=== PATIENT | female | born 2000 | race Hispanic/Latino ===

== ENCOUNTER 2019-10-23 16:47 | Inpatient (IN) | payer MEDICAID ==
--- NOTE | 2019-10-23 21:22 | History and Physical Report ---
History of Present Illness Date of examination: 10/23/19 Date of admission: 10/23/2019 Chief complaint: contractions History of present illness: Pt presented to triage for contractions. NST noted to be noreactive with occasional variables noted. Pt complicated by severe IUGR with last growth in the 3rd percentile and pt was to be delivered betweein 38 and 39.6 as per MFM on sooner for maternal or indications. Pt was scheduled for IOL next week on . Will admit and proceed with IOL at this time due to findings on tracing at term. Pt noted to be vxt on sono done 4 dats agib ib 10/19/2019. Past History : 1 Term Births: 0 Premature Births: 0 Living Children: 0 Para: 0 Mult. Births: 0 Prev : 0 Aborta: 0 Elect. Ab: 0 Spont. Ab: 0 Ectopics: 0 Past Medical History: Negative Past Medical History Past Surgical History: Negative Past Surgical History Family History Summary: Other family member - Has No Family History of Ovarvian Cancer - Entered On: 07/17/2019 Other family member - Has No Family History of Colon Cancer - Entered On: 07/17/2019 Other family member - Has Family History of Hypertension - Entered On: 07/17/2019 Other family member - Has Family History Breast Cancer - Entered On: 07/17/2019 Social History: Marital Status: Single Children: 0 Occupation: [employer] Risk Factors: Smoked Tobacco Use: Never smoker Drug use: no HIV high-risk behavior: low risk Alcohol use: no Dietary Counseling: pn yes Past Medical History Surgery (Non-log hauler): Negative Past Surgical History Uterine Anomaly: negative Social Hx: Marital Status: Single Children: 0 Occupation: [employer] Infection History Hx of STD: none HIV Risk Eval: low risk Hepatitis B Risk Eval: low risk Personal hx. of genital herpes: no Past History Past Medical History: no pertinent history Past Surgical History: no surgical history Family/Genetic History: other (see hpi) Social history: no significant social history - Obstetrical History Expected Date of Delivery: 11/07/19 Actual Gestation: 37 Week(s) 6 Day(s) : 1 Medications and Allergies Allergies Allergy/AdvReac Type Severity Reaction Status Date / Time No Known Allergies Allergy Unverified 10/23/19 17:08 Home Medications Medication Instructions Recorded Confirmed Last Taken Type No Known Home Medications [No 10/23/19 10/23/19 Unknown History Reported Home Medications] - Vital Signs Vital signs: Vital Signs Pulse BP 68 149/67 10/23/19 17:25 10/23/19 17:25 Temp Pulse Resp BP Pulse Ox 98.3 F 95 H 18 149/67 98 10/23/19 17:28 10/23/19 21:02 10/23/19 17:28 10/23/19 17:28 10/23/19 21:02 Results All other labs normal. Assessment and Plan - Patient Problems (1) at 37 weeks gestation or greater with abnormal testing Current Visit: Yes Status: Acute (2) IUGR (intrauterine growth restriction) affecting care of mother Current Visit: Yes Status: Acute Qualifiers: Fetus number: single or unspecified fetus Plan to address problem: -IOL at this time due to findings on NST -Delivery was recommend by MFM between 37 to 39.6 or sooner for no reassuring status (3) Positive GBS test Current Visit: Yes Status: Acute Plan to address problem: -start antibx a this time
[2019-10-23] MEDS ORDERED: TERBUTALINE 1 MG/1 ML INJ SUB-Q PRN (21:38)
[2019-10-23] MEDS ORDERED: DINOPROSTONE 10 MG VAG SUPP VG ONE (21:38)
[2019-10-23] MEDS ORDERED: MINERAL OIL 30 ML ORAL LIQD PO PRN (21:38)
[2019-10-23] MEDS ORDERED: LIDOCAINE (2%) 20 MG/1 ML VIAL 20 ML MDV INFILTRATI ONE (21:38)
[2019-10-23] MEDS ORDERED: ePHEDrine SULFATE 50 MG/1 ML INJ IV PRN (21:38)
[2019-10-23] MEDS ORDERED: ONDANSETRON 4 MG/2 ML INJ IV PRN (21:38)
[2019-10-23] MEDS ORDERED: TERBUTALINE 1 MG/1 ML INJ IVP PRN (21:38)
[2019-10-23] MEDS ORDERED: fentaNYL 100 MCG/2 ML INJ IV ONE (22:00)
[2019-10-23] MEDS ORDERED: OXYTOCIN DRIP 30 UNITS/500 ML BAG IV SCH (22:00)
[2019-10-23] MEDS ORDERED: OXYTOCIN 20 UNIT/1000ML DRIP 20 UNITS/1,000 ML BAG IV SCH (22:00)
[2019-10-23] MEDS: LACTATED RINGERS 1,000 ML IV SCH (23:35)
[2019-10-24 00:15] LABS: Hematocrit 30.3 % (30.3-42.9); Hemoglobin 10.4 gm/dl (10.1-14.3); Mean Corpuscular HGB Conc 34 % (30-34); Mean Corpuscular Volume 91 fl (79-97); Platelet Count 207 K/mm3 (140-440); Red Blood Count 3.31 M/mm3 (3.65-5.03); Red Cell Distribution Width 14.4 % (13.2-15.2)
[2019-10-24] MEDS ORDERED: ceFAZolin/NS 1 GM/50 ML 1 GM/50 ML BAG IV SCH (05:42)
--- NOTE | 2019-10-24 08:11 | Progress Note ---
Assessment and Plan A: 18 y.o. @ 38wks IOL d/t IUGR. Cervidil in placed/t be taken out at 1140am. P: Remove cervidil @ 1140. Allow shower and light meal. After light meal, place cytotec vaginally. Subjective - Subjective Date of service: 10/24/19 (Pt states feeling some back pain.) Principal diagnosis: IOL @ 38 wks d/t IUGR Objective - Vital Signs Vital Signs: Vital Signs - 12hr 10/23/19 10/23/19 10/23/19 20:12 20:17 20:22 Pulse Rate 97 H 92 H 71 Blood Pressure O2 Sat by Pulse 97 97 98 Oximetry 10/23/19 10/23/19 10/23/19 20:27 20:32 20:37 Pulse Rate 71 92 H 86 Blood Pressure O2 Sat by Pulse 97 97 98 Oximetry 10/23/19 10/23/19 10/23/19 20:42 20:47 20:52 Pulse Rate 70 76 80 Blood Pressure O2 Sat by Pulse 98 98 95 Oximetry 10/23/19 10/23/19 10/23/19 20:57 21:02 23:06 Pulse Rate 78 95 H 73 Blood Pressure O2 Sat by Pulse 96 98 97 Oximetry 10/23/19 10/23/19 10/23/19 23:11 23:16 23:57 Pulse Rate 79 62 76 Blood Pressure O2 Sat by Pulse 96 97 98 Oximetry 10/23/19 10/24/19 10/24/19 23:58 00:02 00:07 Pulse Rate 68 74 74 Blood Pressure 113/57 O2 Sat by Pulse 97 97 Oximetry 10/24/19 10/24/19 10/24/19 00:12 00:17 00:22 Pulse Rate 62 74 72 Blood Pressure O2 Sat by Pulse 97 97 97 Oximetry 10/24/19 10/24/19 10/24/19 00:27 00:32 00:37 Pulse Rate 67 70 69 Blood Pressure O2 Sat by Pulse 97 97 96 Oximetry 10/24/19 10/24/19 10/24/19 00:42 00:47 00:52 Pulse Rate 70 65 71 Blood Pressure O2 Sat by Pulse 97 96 97 Oximetry 10/24/19 10/24/19 10/24/19 00:54 00:57 01:02 Pulse Rate 67 74 64 Blood Pressure 100/59 O2 Sat by Pulse 97 97 Oximetry 10/24/19 10/24/19 10/24/19 01:07 01:12 01:17 Pulse Rate 66 63 85 Blood Pressure O2 Sat by Pulse 97 97 97 Oximetry 10/24/19 10/24/19 10/24/19 01:22 01:27 01:32 Pulse Rate 78 81 82 Blood Pressure O2 Sat by Pulse 96 97 97 Oximetry 10/24/19 10/24/19 10/24/19 01:37 01:42 01:44 Pulse Rate 70 62 71 Blood Pressure O2 Sat by Pulse 95 95 94 Oximetry 10/24/19 10/24/19 10/24/19 01:47 01:52 01:53 Pulse Rate 69 63 61 Blood Pressure O2 Sat by Pulse 96 96 94 Oximetry 10/24/19 10/24/19 10/24/19 01:54 01:57 02:00 Pulse Rate 63 73 69 Blood Pressure 106/64 O2 Sat by Pulse 96 94 Oximetry 10/24/19 10/24/19 10/24/19 02:02 02:07 02:08 Pulse Rate 65 70 74 Blood Pressure O2 Sat by Pulse 96 96 94 Oximetry 10/24/19 10/24/19 10/24/19 02:12 02:17 02:22 Pulse Rate 63 80 66 Blood Pressure O2 Sat by Pulse 98 97 97 Oximetry 10/24/19 10/24/19 10/24/19 02:27 02:32 02:37 Pulse Rate 72 80 75 Blood Pressure O2 Sat by Pulse 97 96 96 Oximetry 10/24/19 10/24/19 10/24/19 02:42 02:47 02:52 Pulse Rate 74 74 68 Blood Pressure O2 Sat by Pulse 96 96 97 Oximetry 10/24/19 10/24/19 10/24/19 02:54 02:57 03:02 Pulse Rate 71 71 78 Blood Pressure 116/64 O2 Sat by Pulse 96 96 Oximetry 10/24/19 10/24/19 10/24/19 03:07 03:12 03:17 Pulse Rate 64 72 64 Blood Pressure O2 Sat by Pulse 96 96 95 Oximetry 10/24/19 10/24/19 10/24/19 03:19 03:22 03:27 Pulse Rate 65 65 70 Blood Pressure O2 Sat by Pulse 94 96 95 Oximetry 10/24/19 10/24/19 10/24/19 03:32 03:37 03:49 Pulse Rate 64 67 55 L Blood Pressure O2 Sat by Pulse 95 96 98 Oximetry 10/24/19 10/24/19 10/24/19 03:54 03:55 03:59 Pulse Rate 56 L 52 L 69 Blood Pressure 115/60 O2 Sat by Pulse 97 97 Oximetry 10/24/19 10/24/19 10/24/19 04:04 04:09 04:14 Pulse Rate 58 L 64 79 Blood Pressure O2 Sat by Pulse 96 96 95 Oximetry 10/24/19 10/24/19 10/24/19 04:19 04:23 04:24 Pulse Rate 60 64 64 Blood Pressure O2 Sat by Pulse 95 94 95 Oximetry 10/24/19 10/24/19 10/24/19 04:29 04:34 04:36 Pulse Rate 65 58 L 63 Blood Pressure O2 Sat by Pulse 95 95 94 Oximetry 10/24/19 10/24/19 10/24/19 04:39 04:44 04:49 Pulse Rate 60 82 54 L Blood Pressure O2 Sat by Pulse 94 97 95 Oximetry 10/24/19 10/24/19 10/24/19 04:50 04:54 04:55 Pulse Rate 59 L 82 64 Blood Pressure 107/62 O2 Sat by Pulse 94 96 Oximetry 10/24/19 10/24/19 10/24/19 04:57 04:59 05:04 Pulse Rate 67 65 66 Blood Pressure O2 Sat by Pulse 94 96 95 Oximetry 10/24/19 10/24/19 10/24/19 05:09 05:14 05:19 Pulse Rate 64 61 64 Blood Pressure O2 Sat by Pulse 97 96 96 Oximetry 10/24/19 10/24/19 10/24/19 05:24 05:29 05:34 Pulse Rate 56 L 64 64 Blood Pressure O2 Sat by Pulse 96 96 96 Oximetry 10/24/19 10/24/19 10/24/19 05:42 05:47 05:52 Pulse Rate 78 56 L 61 Blood Pressure O2 Sat by Pulse 98 98 97 Oximetry 10/24/19 10/24/19 10/24/19 05:54 05:57 06:02 Pulse Rate 62 60 59 L Blood Pressure 110/72 O2 Sat by Pulse 97 97 Oximetry 10/24/19 10/24/1920 06:07 06:12 06:17 Pulse Rate 57 L 67 61 Blood Pressure O2 Sat by Pulse 97 96 97 Oximetry 10/24/19 10/24/19 10/24/19 06:22 06:27 06:32 Pulse Rate 55 L 82 58 L Blood Pressure O2 Sat by Pulse 96 96 95 Oximetry 10/24/19 10/24/19 10/24/19 06:37 06:42 06:47 Pulse Rate 60 63 62 Blood Pressure O2 Sat by Pulse 95 95 96 Oximetry 10/24/19 10/24/19 10/24/19 06:52 06:54 06:57 Pulse Rate 69 62 75 Blood Pressure 118/74 O2 Sat by Pulse 98 98 Oximetry 10/24/19 10/24/19 10/24/19 07:02 07:07 07:12 Pulse Rate 72 80 65 Blood Pressure O2 Sat by Pulse 97 97 96 Oximetry 10/24/19 10/24/19 10/24/19 07:17 07:18 07:22 Pulse Rate 81 71 67 Blood Pressure 114/71 O2 Sat by Pulse 98 97 Oximetry 10/24/19 10/24/19 10/24/19 07:29 07:34 07:39 Pulse Rate 78 74 74 Blood Pressure O2 Sat by Pulse 98 98 96 Oximetry 10/24/19 10/24/19 10/24/19 07:44 07:49 07:54 Pulse Rate 66 60 69 Blood Pressure 109/69 O2 Sat by Pulse 97 96 96 Oximetry 10/24/19 10/24/19 07:59 08:04 Pulse Rate 74 82 Blood Pressure O2 Sat by Pulse 96 97 Oximetry - Exam Breasts: deferred Cardiovascular: Regular rate Lungs: Normal air movement Abdomen: Present: normal appearance Vulva: both: normal Uterus: Present: normal FHR: category 1 Uterine Contraction Monitor Mode: External Uterine Contraction Pattern: Irregular Uterine Tone Measurement Phase: Resting Uterine Contraction Intensity: Mild Deep Tendon Reflex Grade: Normal +2 - Labs Labs: Abnormal Labs 10/23/19 23:30 RBC 3.31 L Laboratory Results - last 24 hr 10/23/19 10/23/19 23:30 23:30 WBC 10.1 RBC 3.31 L Hgb 10.4 Hct 30.3 MCV 91 MCH 31 MCHC 34 RDW 14.4 Plt Count 207 Blood Type O POSITIVE Antibody Screen Negative
[2019-10-24] MEDS ORDERED: fentaNYL 100 MCG/2 ML INJ ONE (10:17)
[2019-10-24] MEDS: fentaNYL 100 MCG/2 ML INJ IV PRN ×2 (10:28→13:53)
[2019-10-24] MEDS ORDERED: miSOPROStol 25 MCG TAB VG PRN (10:30)
[2019-10-24] MEDS: AMPICILLIN/NS 1 GM/50 ML 1 GM/50 ML BAG IV SCH ×2 (12:37→17:02)
--- NOTE | 2019-10-24 13:00 | Progress Note ---
Assessment and Plan A:18 y.o. @ 38 wks for IOL d/t IUGR. Cervical exam unchanged. Cervidil was removed. P: Explained plan to pt, to place cytotec vaginally d/t unchanged cervical exam. Cytotec 25 mcg placed vaginally. Will continue with L&D care. Will continue to monitor. Subjective - Subjective Date of service: 10/24/19 (Pt states back pain.) Principal diagnosis: IOL @ 38 wks d/t IUGR Objective - Vital Signs Vital Signs: Vital Signs - 12hr 10/24/19 10/24/19 10/24/19 00:57 01:02 01:07 Pulse Rate 74 64 66 Respiratory Rate Blood Pressure O2 Sat by Pulse 97 97 97 Oximetry 10/24/19 10/24/19 10/24/19 01:12 01:17 01:22 Pulse Rate 63 85 78 Respiratory Rate Blood Pressure O2 Sat by Pulse 97 97 96 Oximetry 10/24/19 10/24/19 10/24/19 01:27 01:32 01:37 Pulse Rate 81 82 70 Respiratory Rate Blood Pressure O2 Sat by Pulse 97 97 95 Oximetry 10/24/19 10/24/19 10/24/19 01:42 01:44 01:47 Pulse Rate 62 71 69 Respiratory Rate Blood Pressure O2 Sat by Pulse 95 94 96 Oximetry 10/24/19 10/24/19 10/24/19 01:52 01:53 01:54 Pulse Rate 63 61 63 Respiratory Rate Blood Pressure 106/64 O2 Sat by Pulse 96 94 Oximetry 10/24/19 10/24/19 10/24/19 01:57 02:00 02:02 Pulse Rate 73 69 65 Respiratory Rate Blood Pressure O2 Sat by Pulse 96 94 96 Oximetry 10/24/19 10/24/19 10/24/19 02:07 02:08 02:12 Pulse Rate 70 74 63 Respiratory Rate Blood Pressure O2 Sat by Pulse 96 94 98 Oximetry 10/24/19 10/24/19 10/24/19 02:17 02:22 02:27 Pulse Rate 80 66 72 Respiratory Rate Blood Pressure O2 Sat by Pulse 97 97 97 Oximetry 10/24/19 10/24/19 10/24/19 02:32 02:37 02:42 Pulse Rate 80 75 74 Respiratory Rate Blood Pressure O2 Sat by Pulse 96 96 96 Oximetry 10/24/19 10/24/1910/23/20 02:47 02:52 02:54 Pulse Rate 74 68 71 Respiratory Rate Blood Pressure 116/64 O2 Sat by Pulse 96 97 Oximetry 10/24/19 10/24/19 10/24/19 02:57 03:02 03:07 Pulse Rate 71 78 64 Respiratory Rate Blood Pressure O2 Sat by Pulse 96 96 96 Oximetry 10/24/19 10/24/19 10/24/19 03:12 03:17 03:19 Pulse Rate 72 64 65 Respiratory Rate Blood Pressure O2 Sat by Pulse 96 95 94 Oximetry 10/24/19 10/24/19 10/24/19 03:22 03:27 03:32 Pulse Rate 65 70 64 Respiratory Rate Blood Pressure O2 Sat by Pulse 96 95 95 Oximetry 10/24/19 10/24/19 10/24/19 03:37 03:49 03:54 Pulse Rate 67 55 L 56 L Respiratory Rate Blood Pressure O2 Sat by Pulse 96 98 97 Oximetry 10/24/19 10/24/19 10/24/19 03:55 03:59 04:04 Pulse Rate 52 L 69 58 L Respiratory Rate Blood Pressure 115/60 O2 Sat by Pulse 97 96 Oximetry 10/24/19 10/24/19 10/24/19 04:09 04:14 04:19 Pulse Rate 64 79 60 Respiratory Rate Blood Pressure O2 Sat by Pulse 96 95 95 Oximetry 10/24/19 10/24/19 10/24/19 04:23 04:24 04:29 Pulse Rate 64 64 65 Respiratory Rate Blood Pressure O2 Sat by Pulse 94 95 95 Oximetry 10/24/19 10/24/19 10/24/19 04:34 04:36 04:39 Pulse Rate 58 L 63 60 Respiratory Rate Blood Pressure O2 Sat by Pulse 95 94 94 Oximetry 10/24/19 10/24/19 10/24/19 04:44 04:49 04:50 Pulse Rate 82 54 L 59 L Respiratory Rate Blood Pressure O2 Sat by Pulse 97 95 94 Oximetry 10/24/19 10/24/19 10/24/19 04:54 04:55 04:57 Pulse Rate 82 64 67 Respiratory Rate Blood Pressure 107/62 O2 Sat by Pulse 96 94 Oximetry 10/24/19 10/24/19 10/24/19 04:59 05:04 05:09 Pulse Rate 65 66 64 Respiratory Rate Blood Pressure O2 Sat by Pulse 96 95 97 Oximetry 10/24/19 10/24/19 10/24/19 05:14 05:19 05:24 Pulse Rate 61 64 56 L Respiratory Rate Blood Pressure O2 Sat by Pulse 96 96 96 Oximetry 10/24/19 10/24/19 10/24/19 05:29 05:34 05:42 Pulse Rate 64 64 78 Respiratory Rate Blood Pressure O2 Sat by Pulse 96 96 98 Oximetry 10/24/19 10/24/19 10/24/19 05:47 05:52 05:54 Pulse Rate 56 L 61 62 Respiratory Rate Blood Pressure 110/72 O2 Sat by Pulse 98 97 Oximetry 10/24/19 10/24/19 10/24/19 05:57 06:02 06:07 Pulse Rate 60 59 L 57 L Respiratory Rate Blood Pressure O2 Sat by Pulse 97 97 97 Oximetry 10/24/19 10/24/19 10/24/19 06:12 06:17 06:22 Pulse Rate 67 61 55 L Respiratory Rate Blood Pressure O2 Sat by Pulse 96 97 96 Oximetry 10/24/19 10/24/19 10/24/19 06:27 06:32 06:37 Pulse Rate 82 58 L 60 Respiratory Rate Blood Pressure O2 Sat by Pulse 96 95 95 Oximetry 10/24/19 10/24/19 10/24/19 06:42 06:47 06:52 Pulse Rate 63 62 69 Respiratory Rate Blood Pressure O2 Sat by Pulse 95 96 98 Oximetry 10/24/19 10/24/19 10/24/19 06:54 06:57 07:02 Pulse Rate 62 75 72 Respiratory Rate Blood Pressure 118/74 O2 Sat by Pulse 98 97 Oximetry 10/24/19 10/24/19 10/24/19 07:07 07:12 07:17 Pulse Rate 80 65 81 Respiratory Rate Blood Pressure O2 Sat by Pulse 97 96 98 Oximetry 10/24/19 10/24/19 10/24/19 07:18 07:22 07:29 Pulse Rate 71 67 78 Respiratory Rate Blood Pressure 114/71 O2 Sat by Pulse 97 98 Oximetry 10/24/19 10/24/19 10/24/19 07:34 07:39 07:44 Pulse Rate 74 74 66 Respiratory Rate Blood Pressure O2 Sat by Pulse 98 96 97 Oximetry 10/24/19 10/24/19 10/24/19 07:49 07:54 07:59 Pulse Rate 60 69 74 Respiratory Rate Blood Pressure 109/69 O2 Sat by Pulse 96 96 96 Oximetry 10/24/19 10/24/19 10/24/19 08:04 08:09 08:14 Pulse Rate 82 65 88 Respiratory Rate Blood Pressure O2 Sat by Pulse 97 98 97 Oximetry 10/24/19 10/24/19 10/24/19 08:19 08:22 08:24 Pulse Rate 99 H 77 72 Respiratory Rate Blood Pressure O2 Sat by Pulse 97 94 98 Oximetry 10/24/19 10/24/19 10/24/19 08:29 08:34 08:39 Pulse Rate 76 70 87 Respiratory Rate Blood Pressure O2 Sat by Pulse 99 96 98 Oximetry 10/24/19 10/24/19 10/24/19 08:51 08:55 08:56 Pulse Rate 88 72 84 Respiratory Rate Blood Pressure 114/60 O2 Sat by Pulse 98 98 Oximetry 10/24/19 10/24/19 10/24/19 09:01 09:06 09:11 Pulse Rate 91 H 61 65 Respiratory Rate Blood Pressure O2 Sat by Pulse 98 97 97 Oximetry 10/24/19 10/24/19 10/24/19 09:16 09:21 09:26 Pulse Rate 68 98 H 62 Respiratory Rate Blood Pressure O2 Sat by Pulse 96 97 95 Oximetry 10/24/19 10/24/19 10/24/19 09:31 09:36 09:47 Pulse Rate 59 L 96 H 86 Respiratory Rate Blood Pressure O2 Sat by Pulse 96 97 99 Oximetry 10/24/19 10/24/19 10/24/19 09:52 09:55 09:57 Pulse Rate 80 62 90 Respiratory Rate Blood Pressure 118/75 O2 Sat by Pulse 98 98 Oximetry 10/24/19 10/24/19 10/24/19 10:02 10:07 10:12 Pulse Rate 74 86 84 Respiratory Rate Blood Pressure O2 Sat by Pulse 97 96 98 Oximetry 10/24/19 10/24/19 10/24/19 10:17 10:22 10:27 Pulse Rate 71 76 83 Respiratory Rate Blood Pressure O2 Sat by Pulse 98 98 96 Oximetry 10/24/19 10/24/19 10/24/19 10:28 10:32 10:37 Pulse Rate 72 85 Respiratory 18 Rate Blood Pressure O2 Sat by Pulse 97 96 Oximetry 10/24/19 10/24/19 10/24/19 10:42 10:47 10:52 Pulse Rate 64 62 60 Respiratory Rate Blood Pressure O2 Sat by Pulse 95 98 97 Oximetry 10/24/19 10/24/19 10/24/19 10:55 10:57 11:02 Pulse Rate 60 61 83 Respiratory Rate Blood Pressure 113/63 O2 Sat by Pulse 98 99 Oximetry 10/24/19 10/24/19 10/24/19 11:07 11:12 11:17 Pulse Rate 67 71 68 Respiratory Rate Blood Pressure O2 Sat by Pulse 99 99 99 Oximetry 10/24/19 10/24/19 10/24/19 11:22 11:27 11:32 Pulse Rate 79 67 80 Respiratory Rate Blood Pressure O2 Sat by Pulse 98 98 99 Oximetry 10/24/19 10/24/19 10/24/19 11:37 11:42 11:49 Pulse Rate 63 73 89 Respiratory Rate Blood Pressure O2 Sat by Pulse 99 98 99 Oximetry 10/24/19 10/24/19 10/24/19 11:54 11:59 12:04 Pulse Rate 69 77 72 Respiratory Rate Blood Pressure 119/67 O2 Sat by Pulse 96 97 94 Oximetry 10/24/19 10/24/19 10/24/19 12:09 12:14 12:19 Pulse Rate 85 94 H 86 Respiratory Rate Blood Pressure O2 Sat by Pulse 97 98 96 Oximetry 10/24/19 10/24/19 10/24/19 12:24 12:29 12:34 Pulse Rate 73 71 82 Respiratory Rate Blood Pressure O2 Sat by Pulse 98 98 98 Oximetry 10/24/19 10/24/19 10/24/19 12:39 12:43 12:44 Pulse Rate 89 67 71 Respiratory Rate Blood Pressure 122/76 O2 Sat by Pulse 98 99 Oximetry 10/24/19 10/24/19 12:49 12:54 Pulse Rate 74 80 Respiratory Rate Blood Pressure 112/63 O2 Sat by Pulse 95 97 Oximetry - Exam Breasts: deferred Cardiovascular: Regular rate Lungs: Normal air movement Abdomen: Present: normal appearance Vulva: both: normal Uterus: Present: normal FHR: auscultation normal, category 1 Uterine Contraction Monitor Mode: External Cervical Dilatation: 0 Cervical Effacement Percentage: 50 station: -2 Uterine Contraction Pattern: Irregular Uterine Tone Measurement Phase: Resting Uterine Contraction Intensity: Mild Extremities: normal Deep Tendon Reflex Grade: Normal +2 - Labs Labs: Abnormal Labs 10/23/19 23:30 RBC 3.31 L Laboratory Results - last 24 hr 10/23/19 10/23/19 23:30 23:30 WBC 10.1 RBC 3.31 L Hgb 10.4 Hct 30.3 MCV 91 MCH 31 MCHC 34 RDW 14.4 Plt Count 207 Blood Type O POSITIVE Antibody Screen Negative
[2019-10-24] MEDS: LACTATED RINGERS 1,000 ML IV SCH ×2 (13:51→15:42)
--- NOTE | 2019-10-24 14:49 | Progress Note ---
Assessment and Plan - Patient Problems (1) at 37 weeks gestation or greater with abnormal testing Current Visit: Yes Status: Acute Plan to address problem: allow epidural and start pitocin (2) IUGR (intrauterine growth restriction) affecting care of mother Current Visit: Yes Status: Acute Qualifiers: Fetus number: single or unspecified fetus (3) Positive GBS test Current Visit: Yes Status: Acute Subjective - Subjective Date of service: 10/24/19 Principal diagnosis: IOL @ 38 wks d/t IUGR Patient reports: loss of fluid, contractions Objective - Vital Signs Vital Signs: Vital Signs - 12hr 10/24/19 10/24/19 10/24/19 02:52 02:54 02:57 Pulse Rate 68 71 71 Respiratory Rate Blood Pressure 116/64 O2 Sat by Pulse 97 96 Oximetry 10/24/19 10/24/19 10/24/19 03:02 03:07 03:12 Pulse Rate 78 64 72 Respiratory Rate Blood Pressure O2 Sat by Pulse 96 96 96 Oximetry 10/24/19 10/24/19 10/24/19 03:17 03:19 03:22 Pulse Rate 64 65 65 Respiratory Rate Blood Pressure O2 Sat by Pulse 95 94 96 Oximetry 10/24/19 10/24/19 10/24/19 03:27 03:32 03:37 Pulse Rate 70 64 67 Respiratory Rate Blood Pressure O2 Sat by Pulse 95 95 96 Oximetry 10/24/19 10/24/19 10/24/19 03:49 03:54 03:55 Pulse Rate 55 L 56 L 52 L Respiratory Rate Blood Pressure 115/60 O2 Sat by Pulse 98 97 Oximetry 10/24/19 10/24/19 10/24/19 03:59 04:04 04:09 Pulse Rate 69 58 L 64 Respiratory Rate Blood Pressure O2 Sat by Pulse 97 96 96 Oximetry 10/24/19 10/24/19 10/24/19 04:14 04:19 04:23 Pulse Rate 79 60 64 Respiratory Rate Blood Pressure O2 Sat by Pulse 95 95 94 Oximetry 10/24/19 10/24/19 10/24/19 04:24 04:29 04:34 Pulse Rate 64 65 58 L Respiratory Rate Blood Pressure O2 Sat by Pulse 95 95 95 Oximetry 10/24/19 10/24/19 10/24/19 04:36 04:39 04:44 Pulse Rate 63 60 82 Respiratory Rate Blood Pressure O2 Sat by Pulse 94 94 97 Oximetry 10/24/19 10/24/19 10/24/19 04:49 04:50 04:54 Pulse Rate 54 L 59 L 82 Respiratory Rate Blood Pressure O2 Sat by Pulse 95 94 96 Oximetry 10/24/19 10/24/19 10/24/19 04:55 04:57 04:59 Pulse Rate 64 67 65 Respiratory Rate Blood Pressure 107/62 O2 Sat by Pulse 94 96 Oximetry 10/24/19 10/24/19 10/24/19 05:04 05:09 05:14 Pulse Rate 66 64 61 Respiratory Rate Blood Pressure O2 Sat by Pulse 95 97 96 Oximetry 10/24/19 10/24/19 10/24/19 05:19 05:24 05:29 Pulse Rate 64 56 L 64 Respiratory Rate Blood Pressure O2 Sat by Pulse 96 96 96 Oximetry 10/24/19 10/24/19 10/24/19 05:34 05:42 05:47 Pulse Rate 64 78 56 L Respiratory Rate Blood Pressure O2 Sat by Pulse 96 98 98 Oximetry 10/24/19 10/24/19 10/24/19 05:52 05:54 05:57 Pulse Rate 61 62 60 Respiratory Rate Blood Pressure 110/72 O2 Sat by Pulse 97 97 Oximetry 10/24/19 10/24/19 10/24/19 06:02 06:07 06:12 Pulse Rate 59 L 57 L 67 Respiratory Rate Blood Pressure O2 Sat by Pulse 97 97 96 Oximetry 10/24/19 10/24/19 10/24/19 06:17 06:22 06:27 Pulse Rate 61 55 L 82 Respiratory Rate Blood Pressure O2 Sat by Pulse 97 96 96 Oximetry 10/24/19 10/24/19 10/24/19 06:32 06:37 06:42 Pulse Rate 58 L 60 63 Respiratory Rate Blood Pressure O2 Sat by Pulse 95 95 95 Oximetry 10/24/19 10/24/19 10/24/19 06:47 06:52 06:54 Pulse Rate 62 69 62 Respiratory Rate Blood Pressure 118/74 O2 Sat by Pulse 96 98 Oximetry 10/24/19 10/24/19 10/24/19 06:57 07:02 07:07 Pulse Rate 75 72 80 Respiratory Rate Blood Pressure O2 Sat by Pulse 98 97 97 Oximetry 10/24/19 10/24/19 10/24/19 07:12 07:17 07:18 Pulse Rate 65 81 71 Respiratory Rate Blood Pressure 114/71 O2 Sat by Pulse 96 98 Oximetry 10/24/19 10/24/19 10/24/19 07:22 07:29 07:34 Pulse Rate 67 78 74 Respiratory Rate Blood Pressure O2 Sat by Pulse 97 98 98 Oximetry 10/24/19 10/24/19 10/24/19 07:39 07:44 07:49 Pulse Rate 74 66 60 Respiratory Rate Blood Pressure O2 Sat by Pulse 96 97 96 Oximetry 10/24/19 10/24/19 10/24/19 07:54 07:59 08:04 Pulse Rate 69 74 82 Respiratory Rate Blood Pressure 109/69 O2 Sat by Pulse 96 96 97 Oximetry 10/24/19 10/24/19 10/24/19 08:09 08:14 08:19 Pulse Rate 65 88 99 H Respiratory Rate Blood Pressure O2 Sat by Pulse 98 97 97 Oximetry 10/24/19 10/24/19 10/24/19 08:22 08:24 08:29 Pulse Rate 77 72 76 Respiratory Rate Blood Pressure O2 Sat by Pulse 94 98 99 Oximetry 10/24/19 10/24/19 10/24/19 08:34 08:39 08:51 Pulse Rate 70 87 88 Respiratory Rate Blood Pressure O2 Sat by Pulse 96 98 98 Oximetry 10/24/19 10/24/19 10/24/19 08:55 08:56 09:01 Pulse Rate 72 84 91 H Respiratory Rate Blood Pressure 114/60 O2 Sat by Pulse 98 98 Oximetry 10/24/19 10/24/19 10/24/19 09:06 09:11 09:16 Pulse Rate 61 65 68 Respiratory Rate Blood Pressure O2 Sat by Pulse 97 97 96 Oximetry 10/24/19 10/24/19 10/24/19 09:21 09:26 09:31 Pulse Rate 98 H 62 59 L Respiratory Rate Blood Pressure O2 Sat by Pulse 97 95 96 Oximetry 10/24/19 10/24/19 10/24/19 09:36 09:47 09:52 Pulse Rate 96 H 86 80 Respiratory Rate Blood Pressure O2 Sat by Pulse 97 99 98 Oximetry 10/24/19 10/24/19 10/24/19 09:55 09:57 10:02 Pulse Rate 62 90 74 Respiratory Rate Blood Pressure 118/75 O2 Sat by Pulse 98 97 Oximetry 10/24/19 10/24/19 10/24/19 10:07 10:12 10:17 Pulse Rate 86 84 71 Respiratory Rate Blood Pressure O2 Sat by Pulse 96 98 98 Oximetry 10/24/19 10/24/19 10/24/19 10:22 10:27 10:28 Pulse Rate 76 83 Respiratory 18 Rate Blood Pressure O2 Sat by Pulse 98 96 Oximetry 10/24/19 10/24/19 10/24/19 10:32 10:37 10:42 Pulse Rate 72 85 64 Respiratory Rate Blood Pressure O2 Sat by Pulse 97 96 95 Oximetry 10/24/19 10/24/19 10/24/19 10:47 10:52 10:55 Pulse Rate 62 60 60 Respiratory Rate Blood Pressure 113/63 O2 Sat by Pulse 98 97 Oximetry 10/24/19 10/24/19 10/24/19 10:57 11:02 11:07 Pulse Rate 61 83 67 Respiratory Rate Blood Pressure O2 Sat by Pulse 98 99 99 Oximetry 10/24/19 10/24/19 10/24/19 11:12 11:17 11:22 Pulse Rate 71 68 79 Respiratory Rate Blood Pressure O2 Sat by Pulse 99 99 98 Oximetry 10/24/19 10/24/19 10/24/19 11:27 11:32 11:37 Pulse Rate 67 80 63 Respiratory Rate Blood Pressure O2 Sat by Pulse 98 99 99 Oximetry 10/24/19 10/24/19 10/24/19 11:42 11:49 11:54 Pulse Rate 73 89 69 Respiratory Rate Blood Pressure 119/67 O2 Sat by Pulse 98 99 96 Oximetry 10/24/19 10/24/19 10/24/19 11:59 12:04 12:09 Pulse Rate 77 72 85 Respiratory Rate Blood Pressure O2 Sat by Pulse 97 94 97 Oximetry 10/24/19 10/24/19 10/24/19 12:14 12:19 12:24 Pulse Rate 94 H 86 73 Respiratory Rate Blood Pressure O2 Sat by Pulse 98 96 98 Oximetry 10/24/19 10/24/19 10/24/19 12:29 12:34 12:39 Pulse Rate 71 82 89 Respiratory Rate Blood Pressure O2 Sat by Pulse 98 98 98 Oximetry 10/24/19 10/24/19 10/24/19 12:43 12:44 12:49 Pulse Rate 67 71 74 Respiratory Rate Blood Pressure 122/76 O2 Sat by Pulse 99 95 Oximetry 10/24/19 10/24/19 10/24/19 12:54 12:59 13:04 Pulse Rate 80 88 72 Respiratory Rate Blood Pressure 112/63 O2 Sat by Pulse 97 98 99 Oximetry 10/24/19 10/24/19 10/24/19 13:09 13:14 13:19 Pulse Rate 70 62 86 Respiratory Rate Blood Pressure O2 Sat by Pulse 96 97 98 Oximetry 10/24/19 10/24/19 10/24/19 13:33 13:38 13:43 Pulse Rate 67 71 83 Respiratory Rate Blood Pressure O2 Sat by Pulse 98 98 96 Oximetry 10/24/19 10/24/19 10/24/19 13:48 13:53 13:54 Pulse Rate 64 76 86 Respiratory Rate Blood Pressure 123/77 O2 Sat by Pulse 96 97 Oximetry 10/24/19 10/24/19 10/24/19 13:56 13:58 14:03 Pulse Rate 68 86 59 L Respiratory Rate Blood Pressure O2 Sat by Pulse 94 95 95 Oximetry 10/24/19 10/24/19 10/24/19 14:05 14:08 14:13 Pulse Rate 65 79 66 Respiratory Rate Blood Pressure O2 Sat by Pulse 94 96 98 Oximetry 10/24/19 10/24/19 10/24/19 14:18 14:23 14:28 Pulse Rate 61 78 62 Respiratory Rate Blood Pressure O2 Sat by Pulse 97 98 97 Oximetry 10/24/19 10/24/19 10/24/19 14:33 14:38 14:43 Pulse Rate 89 94 H 84 Respiratory Rate Blood Pressure O2 Sat by Pulse 97 98 98 Oximetry - Exam Breasts: deferred Vulva: both: normal Uterus: Absent: tenderness FHR: category 1 Uterine Contraction Monitor Mode: External Cervical Dilatation: 2 (+SROM, clear) Cervical Effacement Percentage: 90 station: -1 Uterine Contraction Pattern: Irregular Extremities: normal - Labs Labs: Abnormal Labs 10/23/19 23:30 RBC 3.31 L Laboratory Results - last 24 hr 10/23/19 10/23/19 23:30 23:30 WBC 10.1 RBC 3.31 L Hgb 10.4 Hct 30.3 MCV 91 MCH 31 MCHC 34 RDW 14.4 Plt Count 207 Blood Type O POSITIVE Antibody Screen Negative
[2019-10-24] MEDS ORDERED: NALOXONE 2 MG/2 ML INJ IV PRN (15:05)
[2019-10-24] MEDS ORDERED: ePHEDrine SULFATE 50 MG/1 ML INJ IV PRN (15:05)
[2019-10-24] MEDS ORDERED: miSOPROStol 200 MCG TAB ONE (15:27)
[2019-10-24] MEDS ORDERED: CARBOPROST TROMETHAMINE 250 MCG/1 ML INJ IM ONE (15:28)
[2019-10-24] MEDS ORDERED: METHYLERGONOVINE MALEATE 0.2 MG/ML VIAL IM ONE (15:28)
[2019-10-24] MEDS ORDERED: fentaNYL-BUPIV 2 MCG/ML-0.125% 200 MCG/100 ML BAG EPIDURAL SCH (16:00)
--- NOTE | 2019-10-24 16:38 | Progress Note ---
Assessment and Plan - Patient Problems (1) at 37 weeks gestation or greater with abnormal testing Current Visit: Yes Status: Acute (2) IUGR (intrauterine growth restriction) affecting care of mother Current Visit: Yes Status: Acute Qualifiers: Fetus number: single or unspecified fetus (3) Positive GBS test Current Visit: Yes Status: Acute Subjective - Subjective Date of service: 10/24/19 Principal diagnosis: IOL @ 38 wks d/t IUGR Patient reports: no new complaints Objective - Vital Signs Vital Signs: Vital Signs - 12hr 10/24/19 10/24/19 10/24/19 04:39 04:44 04:49 Pulse Rate 60 82 54 L Respiratory Rate Blood Pressure O2 Sat by Pulse 94 97 95 Oximetry 10/24/19 10/24/19 10/24/19 04:50 04:54 04:55 Pulse Rate 59 L 82 64 Respiratory Rate Blood Pressure 107/62 O2 Sat by Pulse 94 96 Oximetry 10/24/19 10/24/19 10/24/19 04:57 04:59 05:04 Pulse Rate 67 65 66 Respiratory Rate Blood Pressure O2 Sat by Pulse 94 96 95 Oximetry 10/24/19 10/24/19 10/24/19 05:09 05:14 05:19 Pulse Rate 64 61 64 Respiratory Rate Blood Pressure O2 Sat by Pulse 97 96 96 Oximetry 10/24/19 10/24/19 10/24/19 05:24 05:29 05:34 Pulse Rate 56 L 64 64 Respiratory Rate Blood Pressure O2 Sat by Pulse 96 96 96 Oximetry 10/24/19 10/24/19 10/24/19 05:42 05:47 05:52 Pulse Rate 78 56 L 61 Respiratory Rate Blood Pressure O2 Sat by Pulse 98 98 97 Oximetry 10/24/19 10/24/19 10/24/19 05:54 05:57 06:02 Pulse Rate 62 60 59 L Respiratory Rate Blood Pressure 110/72 O2 Sat by Pulse 97 97 Oximetry 10/24/19 10/24/19 10/24/19 06:07 06:12 06:17 Pulse Rate 57 L 67 61 Respiratory Rate Blood Pressure O2 Sat by Pulse 97 96 97 Oximetry 10/24/19 10/24/19 10/24/19 06:22 06:27 06:32 Pulse Rate 55 L 82 58 L Respiratory Rate Blood Pressure O2 Sat by Pulse 96 96 95 Oximetry 10/24/19 10/24/19 10/24/19 06:37 06:42 06:47 Pulse Rate 60 63 62 Respiratory Rate Blood Pressure O2 Sat by Pulse 95 95 96 Oximetry 10/24/19 10/24/19 10/24/19 06:52 06:54 06:57 Pulse Rate 69 62 75 Respiratory Rate Blood Pressure 118/74 O2 Sat by Pulse 98 98 Oximetry 10/24/19 10/24/19 10/24/19 07:02 07:07 07:12 Pulse Rate 72 80 65 Respiratory Rate Blood Pressure O2 Sat by Pulse 97 97 96 Oximetry 10/24/19 10/24/19 10/24/19 07:17 07:18 07:22 Pulse Rate 81 71 67 Respiratory Rate Blood Pressure 114/71 O2 Sat by Pulse 98 97 Oximetry 10/24/19 10/24/19 10/24/19 07:29 07:34 07:39 Pulse Rate 78 74 74 Respiratory Rate Blood Pressure O2 Sat by Pulse 98 98 96 Oximetry 10/24/19 10/24/19 10/24/19 07:44 07:49 07:54 Pulse Rate 66 60 69 Respiratory Rate Blood Pressure 109/69 O2 Sat by Pulse 97 96 96 Oximetry 10/24/19 10/24/19 10/24/19 07:59 08:04 08:09 Pulse Rate 74 82 65 Respiratory Rate Blood Pressure O2 Sat by Pulse 96 97 98 Oximetry 10/24/19 10/24/19 10/24/19 08:14 08:19 08:22 Pulse Rate 88 99 H 77 Respiratory Rate Blood Pressure O2 Sat by Pulse 97 97 94 Oximetry 10/24/19 10/24/19 10/24/19 08:24 08:29 08:34 Pulse Rate 72 76 70 Respiratory Rate Blood Pressure O2 Sat by Pulse 98 99 96 Oximetry 10/24/19 10/24/19 10/24/19 08:39 08:51 08:55 Pulse Rate 87 88 72 Respiratory Rate Blood Pressure 114/60 O2 Sat by Pulse 98 98 Oximetry 10/24/19 10/24/19 10/24/19 08:56 09:01 09:06 Pulse Rate 84 91 H 61 Respiratory Rate Blood Pressure O2 Sat by Pulse 98 98 97 Oximetry 10/24/19 10/24/19 10/24/19 09:11 09:16 09:21 Pulse Rate 65 68 98 H Respiratory Rate Blood Pressure O2 Sat by Pulse 97 96 97 Oximetry 10/24/19 10/24/19 10/24/19 09:26 09:31 09:36 Pulse Rate 62 59 L 96 H Respiratory Rate Blood Pressure O2 Sat by Pulse 95 96 97 Oximetry 10/24/19 10/24/19 10/24/19 09:47 09:52 09:55 Pulse Rate 86 80 62 Respiratory Rate Blood Pressure 118/75 O2 Sat by Pulse 99 98 Oximetry 10/24/19 10/24/19 10/24/19 09:57 10:02 10:07 Pulse Rate 90 74 86 Respiratory Rate Blood Pressure O2 Sat by Pulse 98 97 96 Oximetry 10/24/19 10/24/19 10/24/19 10:12 10:17 10:22 Pulse Rate 84 71 76 Respiratory Rate Blood Pressure O2 Sat by Pulse 98 98 98 Oximetry 10/24/19 10/24/19 10/24/19 10:27 10:28 10:32 Pulse Rate 83 72 Respiratory 18 Rate Blood Pressure O2 Sat by Pulse 96 97 Oximetry 10/24/19 10/24/19 10/24/19 10:37 10:42 10:47 Pulse Rate 85 64 62 Respiratory Rate Blood Pressure O2 Sat by Pulse 96 95 98 Oximetry 10/24/19 10/24/19 10/24/19 10:52 10:55 10:57 Pulse Rate 60 60 61 Respiratory Rate Blood Pressure 113/63 O2 Sat by Pulse 97 98 Oximetry 10/24/19 10/24/19 10/24/19 11:02 11:07 11:12 Pulse Rate 83 67 71 Respiratory Rate Blood Pressure O2 Sat by Pulse 99 99 99 Oximetry 10/24/19 10/24/19 10/24/19 11:17 11:22 11:27 Pulse Rate 68 79 67 Respiratory Rate Blood Pressure O2 Sat by Pulse 99 98 98 Oximetry 10/24/19 10/24/19 10/24/19 11:32 11:37 11:42 Pulse Rate 80 63 73 Respiratory Rate Blood Pressure O2 Sat by Pulse 99 99 98 Oximetry 10/24/19 10/24/19 10/24/19 11:49 11:54 11:59 Pulse Rate 89 69 77 Respiratory Rate Blood Pressure 119/67 O2 Sat by Pulse 99 96 97 Oximetry 10/24/19 10/24/19 10/24/19 12:04 12:09 12:14 Pulse Rate 72 85 94 H Respiratory Rate Blood Pressure O2 Sat by Pulse 94 97 98 Oximetry 10/24/19 10/24/19 10/24/19 12:19 12:24 12:29 Pulse Rate 86 73 71 Respiratory Rate Blood Pressure O2 Sat by Pulse 96 98 98 Oximetry 10/24/19 10/24/19 10/24/19 12:34 12:39 12:43 Pulse Rate 82 89 67 Respiratory Rate Blood Pressure 122/76 O2 Sat by Pulse 98 98 Oximetry 10/24/19 10/24/19 10/24/19 12:44 12:49 12:54 Pulse Rate 71 74 80 Respiratory Rate Blood Pressure 112/63 O2 Sat by Pulse 99 95 97 Oximetry 10/24/19 10/24/19 10/24/19 12:59 13:04 13:09 Pulse Rate 88 72 70 Respiratory Rate Blood Pressure O2 Sat by Pulse 98 99 96 Oximetry 10/24/19 10/24/19 10/24/19 13:14 13:19 13:33 Pulse Rate 62 86 67 Respiratory Rate Blood Pressure O2 Sat by Pulse 97 98 98 Oximetry 10/24/19 10/24/19 10/24/19 13:38 13:43 13:48 Pulse Rate 71 83 64 Respiratory Rate Blood Pressure O2 Sat by Pulse 98 96 96 Oximetry 10/24/19 10/24/19 10/24/19 13:53 13:54 13:56 Pulse Rate 76 86 68 Respiratory Rate Blood Pressure 123/77 O2 Sat by Pulse 97 94 Oximetry 10/24/19 10/24/19 10/24/19 13:58 14:03 14:05 Pulse Rate 86 59 L 65 Respiratory Rate Blood Pressure O2 Sat by Pulse 95 95 94 Oximetry 10/24/19 10/24/19 10/24/19 14:08 14:13 14:18 Pulse Rate 79 66 61 Respiratory Rate Blood Pressure O2 Sat by Pulse 96 98 97 Oximetry 10/24/19 10/24/19 10/24/19 14:23 14:28 14:33 Pulse Rate 78 62 89 Respiratory Rate Blood Pressure O2 Sat by Pulse 98 97 97 Oximetry 10/24/19 10/24/19 10/24/19 14:38 14:43 14:48 Pulse Rate 94 H 84 94 H Respiratory Rate Blood Pressure O2 Sat by Pulse 98 98 96 Oximetry 10/24/19 10/24/19 10/24/19 14:53 14:54 14:58 Pulse Rate 87 80 94 H Respiratory Rate Blood Pressure 138/78 O2 Sat by Pulse 97 98 Oximetry 10/24/19 10/24/19 10/24/19 15:03 15:08 15:10 Pulse Rate 88 102 H 101 H Respiratory Rate Blood Pressure 130/79 O2 Sat by Pulse 98 99 Oximetry 10/24/19 10/24/19 10/24/19 15:12 15:13 15:15 Pulse Rate 82 91 H 104 H Respiratory Rate Blood Pressure 120/58 121/64 O2 Sat by Pulse 98 Oximetry 10/24/19 10/24/19 10/24/19 15:18 15:21 15:23 Pulse Rate 114 H 93 H 106 H Respiratory Rate Blood Pressure 129/57 128/58 O2 Sat by Pulse 98 100 Oximetry 10/24/19 10/24/19 10/24/19 15:24 15:27 15:28 Pulse Rate 89 112 H 111 H Respiratory Rate Blood Pressure 119/62 118/57 O2 Sat by Pulse 100 Oximetry 10/24/19 10/24/19 10/24/19 15:30 15:33 15:38 Pulse Rate 113 H 120 H 122 H Respiratory Rate Blood Pressure 121/64 118/76 O2 Sat by Pulse 100 100 Oximetry 10/24/19 10/24/19 10/24/19 15:39 15:43 15:48 Pulse Rate 105 H 110 H 112 H Respiratory Rate Blood Pressure 114/59 O2 Sat by Pulse 100 99 Oximetry 10/24/19 10/24/19 10/24/19 15:53 15:55 15:58 Pulse Rate 102 H 110 H 91 H Respiratory Rate Blood Pressure 125/72 O2 Sat by Pulse 100 100 Oximetry 10/24/19 10/24/19 10/24/19 16:03 16:08 16:11 Pulse Rate 104 H 87 86 Respiratory Rate Blood Pressure 127/73 O2 Sat by Pulse 100 100 Oximetry 10/24/19 10/24/19 10/24/19 16:13 16:18 16:23 Pulse Rate 81 79 83 Respiratory Rate Blood Pressure O2 Sat by Pulse 100 99 99 Oximetry 10/24/19 10/24/19 10/24/19 16:25 16:28 16:33 Pulse Rate 88 94 H 98 H Respiratory Rate Blood Pressure 109/63 O2 Sat by Pulse 99 99 Oximetry - Exam Breasts: deferred Cervical Dilatation: 10 Cervical Effacement Percentage: 100 station: +1 - Labs Labs: Abnormal Labs 10/23/19 23:30 RBC 3.31 L Laboratory Results - last 24 hr 10/23/19 10/23/19 23:30 23:30 WBC 10.1 RBC 3.31 L Hgb 10.4 Hct 30.3 MCV 91 MCH 31 MCHC 34 RDW 14.4 Plt Count 207 Blood Type O POSITIVE Antibody Screen Negative
--- NOTE | 2019-10-24 17:06 | Anesthesia Consultation ---
Anesthesia Consult and Med Hx Date of service: 10/24/19 - Airway Anesthetic Teeth Evaluation: Good ROM Head & Neck: Adequate Mental/Hyoid Distance: Adequate Mallampati Class: Class II Intubation Access Assessment: Probably Good - Pulmonary Exam CTA: Yes - Cardiac Exam Cardiac Exam: RRR - Pre-Operative Health Status ASA Pre-Surgery Classification: ASA2 Proposed Anesthetic Plan: Epidural - Pulmonary Hx Smoking: No Hx Asthma: No Hx Respiratory Symptoms: No SOB: No COPD: No Home Oxygen Therapy: No Hx Pneumonia: No Hx Sleep Apnea: No - Cardiovascular System Hx Hypertension: No Hx Coronary Artery Disease: No Hx Heart Attack/AMI: No Hx Angina: No Hx Percutaneous Transluminal Coronary Angioplasty (PTCA): No Hx Cardia Arrhythmia: No Hx Pacemaker: No Hx Internal Defibrillator: No Hx Valvular Heart Disease: No Hx Heart Murmur: No Hx Peripheral Vascular Disease: No - Central Nervous System Hx Neuromuscular Disorder: No Hx Seizures: No CVA: No Hx Back Pain: No Hx Psychiatric Problems: No - Gastrointestinal Hx Ulcer: No Hx Gastroesophageal Reflux Disease: No - Endocrine Hx Renal Disease: No Hx End Stage Renal Disease: No Hx Cirrhosis: No Hx Liver Disease: No Hx Insulin Dependent Diabetes: No Hx Non-Insulin Dependent Diabetes: No Hx Thyroid Disease: No Hx Hypothyroidism: No Hx Hyperthyroidism: No - Hematic Hx Anemia: No Hx Sickle Cell Disease: No - Other Systems Hx Alcohol Use: No Hx Substance Use: No Hx Cancer: No Hx Obesity: No
[2019-10-24] MEDS ORDERED: BUPIVACAINE/PF (0.25%) 2.5 MG/ML 10 ML VIAL INFILTRATI ONE (17:34)
[2019-10-24] MEDS ORDERED: PROMETHAZINE 25 MG TAB PO PRN (18:58)
[2019-10-24] MEDS ORDERED: MAGNESIUM HYDROXIDE (MOM) ORAL LIQD UDC PO PRN (18:58)
[2019-10-24] MEDS ORDERED: diphenhydrAMINE 25 MG CAP PO PRN (18:58)
[2019-10-24] MEDS ORDERED: WITCH HAZEL/ GLYCERIN PAD TP PRN (18:58)
[2019-10-24] MEDS ORDERED: ACETAMINOPHEN 325 MG TAB PO PRN (18:58)
[2019-10-24] MEDS ORDERED: BENZOCAINE/MENTHOL 20/0.5% TOP SPRAY 56 GM TP PRN (18:58)
[2019-10-24] MEDS ORDERED: ONDANSETRON 4 MG/2 ML INJ IV PRN (18:58)
[2019-10-24] MEDS ORDERED: LANOLIN/ZINC/DIMETHICONE (LANSINOH) 7 GM TP PRN (18:58)
[2019-10-24] MEDS ORDERED: OXYTOCIN 20 UNIT/1000ML DRIP 20 UNITS/1,000 ML BAG IV SCH (19:00)
--- NOTE | 2019-10-24 19:22 | Procedure Note ---
OB Delivery Note - Delivery Date of Delivery: 10/24/19 (Pt delivered at 536 pm) [employer] Top Helper: MING FLOR Estimated blood loss: 100cc - Vaginal Delivery position: OA Intrapartum events: extend. tachycardia Delivery induction: cervidil Delivery monitor: external FHT, external uterine Route of delivery: Delivery placenta: spontaneous Delivery cord: 3 umbilical vessels Episiotomy: none Delivery laceration: none Anesthesia: epidural Delivery comments: of viable female infant over intact perineum. Infant to mothers chest for skin to skin. Cord cut and clamped after cessation of pulse. Infant handed to foam charger for evaluation. Spontaneous delivery of placenta, intact, complete, 3 vessels noted. Placenta to pathology d/t IUGR. Perineum and vagina inspected, no lacerations noted. Fundus firm, minimal bleeding noted. Apgars 8,9. Weight 4-13. EBL 100ml. Sponges and instruments counted with RN X 2 and correct. Infant and mother left in stable condition in the care of RN.
[2019-10-24] MEDS: IBUPROFEN 800 MG TAB PO SCH (20:00)
[2019-10-24] MEDS: DOCUSATE SODIUM 100 MG CAP PO SCH (22:00)
[2019-10-25] MEDS: IBUPROFEN 800 MG TAB PO SCH ×3 (04:00→21:38)
[2019-10-25] MEDS ORDERED: DIPHtheria,PERTUSSIS(ACELL),TETANUS VACCINE/PF 0.5 ML VIAL IM ONE (06:00)
--- NOTE | 2019-10-25 06:09 | Post Anesthesia Evaluation ---
- Post Anesthesia Evaluation Patient Participated: Yes Airway Patent: Yes Stable Respiratory Function: Yes Nausea/Vomiting: No Temp > 96.8F: Yes Pain Manageable: Yes Adequeate Hydration: Yes Anesthesia Complications: No Block Receding Appropriately: Yes Patient on Ventilator: No
[2019-10-25 07:20] LABS: Hematocrit 27.9 % (30.3-42.9); Hemoglobin 9.5 gm/dl (10.1-14.3)
--- NOTE | 2019-10-25 08:07 | Discharge Summary ---
Providers - Providers Date of Admission: 10/23/19 21:38 Date of discharge: 10/25/19 Attending physician: GABBY WATKINS Primary care physician: GABBY WATKINS Hospitalization Reason for admission: labor Condition: Good Pertinent studies: post delivery H&H 9.5/27.9, asymptomatic anemia from acute blood loss Procedures: Hospital course: uncomplicated and course Disposition: DC-01 TO HOME OR SELFCARE - Discharge Diagnoses (1) Spontaneous vaginal delivery Status: Acute Core Measure Documentation - Palliative Care Palliative Care/ Comfort Measures: Not Applicable - Core Measures Any of the following diagnoses?: none Exam - Constitutional Vitals: Temp Pulse Resp BP Pulse Ox 98.7 F 81 18 97/48 98 10/25/19 06:20 10/25/19 06:20 10/25/19 06:20 10/25/19 06:20 10/25/19 06:20 General appearance: Present: no acute distress, well-nourished - EENT Eyes: Present: PERRL ENT: hearing intact, clear oral mucosa - Neck Neck: Present: supple, normal ROM - Respiratory Respiratory effort: normal Respiratory: bilateral: CTA - Cardiovascular Rhythm: regular - Extremities Extremities: pulses symmetrical, No edema - Abdominal General gastrointestinal: Present: soft, non-tender, non-distended, normal bowel sounds Female genitourinary: Present: normal - Integumentary Integumentary: Present: clear, warm, dry - Musculoskeletal Musculoskeletal: gait normal, strength equal bilaterally - Psychiatric Psychiatric: appropriate mood/affect, intact judgment & insight - Neurologic Neurologic: CNII-XII intact, moves all extremities - Additional findings Additional findings: lochia scant, fundus firm Plan Activity: no restrictions Diet: regular Follow up with: GABBY WATKINS MD [Primary Care Provider] - 6 Weeks (Congratulations! Please call [phone] to schedule your visit in 6 weeks. Call for any questions or concerns. ) Prescriptions: Lidocain2.5%/Prilocai2.5% [Emla] 5 gm TP ONCE PRN #1 tube PRN Reason: Pain Ibuprofen [Motrin 800 MG tab] 800 mg PO Q8HR PRN #30 tablet PRN Reason: Pain
[2019-10-25] MEDS: PRENATAL VIT27-FE FUMARATE-FOLIC ACID VIT TAB PO SCH (10:12)
[2019-10-25] MEDS: DOCUSATE SODIUM 100 MG CAP PO SCH ×2 (10:12→21:38)
[2019-10-26] MEDS: IBUPROFEN 800 MG TAB PO SCH ×2 (05:43→14:35)
--- NOTE | 2019-10-26 08:10 | Event Note ---
Date: 10/26/19 (Pt desires to be discharged home.) 18 y.o. s/p . Doing well. Desires to go home. uncomplicated. Depo for BC. Will follow up in office in 4 weeks for visit.
[2019-10-26] MEDS ORDERED: medroxyPROGESTERone ACETATE 150 MG/ML SYRINGE IM ONE (10:00)
[2019-10-26] MEDS: DOCUSATE SODIUM 100 MG CAP PO SCH (11:17)
[2019-10-26] MEDS: PRENATAL VIT27-FE FUMARATE-FOLIC ACID VIT TAB PO SCH (11:17)
[2019-10-26 19:06] VITALS: BP 143/77
== END 2019-10-25 15:00 | disposition home or self-care (01) | DRG 775 ==
LOC: APU 16:47 → TRG 16:47 → LD 21:38 → TRG 21:38 → OB 10-24 22:12
PROVIDERS: ADMIT Obstetrics & Gynecology; ATTEND Obstetrics & Gynecology
PROC: 10E0XZZ Delivery of Products of Conception, External Approach (ICD-10-PCS; principal; 2019-10-24)
PROC: 3E0P7VZ Introduction of Hormone into Female Reproductive, Via Natural or Artificial Opening (ICD-10-PCS; 2019-10-24)
PROC: 3E0R3BZ Introduction of Anesthetic Agent into Spinal Canal, Percutaneous Approach (ICD-10-PCS; 2019-10-24)
PROC: 00HU33Z Insertion of Infusion Device into Spinal Canal, Percutaneous Approach (ICD-10-PCS; 2019-10-24)
PROC: 3E0234Z Introduction of Serum, Toxoid and Vaccine into Muscle, Percutaneous Approach (ICD-10-PCS; 2019-10-25)
DX: O76 Abnormality in fetal heart rate and rhythm complicating labor and delivery (principal); O36.5930 Maternal care for other known or suspected poor fetal growth, third trimester, not applicable or unspecified; O99.824 Streptococcus B carrier state complicating childbirth; Z3A.37 37 weeks gestation of pregnancy; Z37.0 Single live birth; Z23 Encounter for immunization; O90.81 Anemia of the puerperium; D62 Acute posthemorrhagic anemia
CPT/HCPCS: 36415; 59025; 59200; 85014; 85018; 85027; 86850; 86900; 86901; 87086; 88307; 90715; 96360; 96361; 96365; 96366; G0378; J0290; J0690; J1050; J2210; J2405; J2590; J3010; J7120